=== PATIENT | male | born 1965 | race Caucasian/White ===

== ENCOUNTER 2017-08-23 01:26 | Emergency (ER) | payer MEDICAID, OTHER ==
[~2017-08-23] VITALS: Ht 167.6 cm; Wt 77.1 kg
[~2017-08-23 01:26] MED LIST: NKM; UNOBMED
[2017-08-23 01:30] VITALS: BP 140/78
--- NOTE | 2017-08-23 02:22 | Emergency Room Report ---
History of Present Illness General Chief Complaint: Alcohol Intoxication Source: Patient, EMS Present Illness HPI Is a 52-year-old male with a history of polydrug abuse. He presents with altered mental status. He was outside a drug store. The 2 heavy drinking. Told me that he also using drugs. No trauma. Denies any other complaint. Bystander called 911. Allergies: Coded Allergies: No Known Allergies (Unverified , 12/23/13) UNABLE TO ASSESS (Unverified , 08/23/17) Patient History Past Medical History: see triage record, old chart reviewed Past Surgical History: unable to obtain Pertinent Family History: unable to obtain Social History: Reports: alcohol use, drug use Immunizations: other Reviewed Nursing Documentation: PMH: Agreed, PSxH: Agreed Nursing Documentation-PMH Past Medical History Deferred: Pt Cognitively Impaired Review of Systems All Other Systems: limited - Secondary to intoxication Physical Exam Vital Signs Date Time Temp Pulse Resp B/P (MAP) Pulse Ox O2 Delivery O2 Flow Rate FiO2 08/23/17 01:23 97.5 98 17 140/78 96 Room Air vitals normal Sp02 EP Interpretation: reviewed, normal General Appearance: well appearing, no apparent distress, other - Very intoxicated Head: normocephalic, atraumatic Eyes: bilateral eye PERRL, bilateral eye EOMI ENT: hearing grossly normal, normal pharynx Neck: full range of motion, supple, no meningismus Respiratory: chest non-tender, lungs clear, normal breath sounds Cardiovascular #1: regular rate, rhythm, no murmur Gastrointestinal: normal bowel sounds, non tender, no mass, no organomegaly, no bruit, non-distended Musculoskeletal: back normal, normal range of motion Neurologic: grossly normal Skin: warm/dry Medical Decision Making Diagnostic Impression: Primary Impression: Drug abuse Additional Impression: Acute alcoholic intoxication Qualified Codes: F10.929 - Alcohol use, unspecified with intoxication, unspecified ER Course Patient presents with intoxication secondary to alcohol and drugs. No trauma to warrant CT scan or x-ray. We'll watch until clinical sobriety. Last Vital Signs Date Time Temp Pulse Resp B/P (MAP) Pulse Ox O2 Delivery O2 Flow Rate FiO2 08/23/17 01:30 97.5 17 140/78 96 Room Air 08/23/17 01:23 98 Status: improved Disposition: HOME, SELF-CARE Condition: Stable [facility] (PCP) Patient Instructions: Alcohol Intoxication, [id number] Additional Instructions: Stop using drugs and alcohol. Followup with rehabilitation. Followup with your Dr. in 7 days. Return if worse. MALINA DURÁN M.D. Aug 23, 2017 02:22
[2017-08-23 04:10] VITALS: BP 118/57
[2017-08-23 05:15] VITALS: BP 118/57
== END 2017-08-23 05:13 | disposition home or self-care (01) ==
LOC: EDBD 01:26 → EMR 01:57
DX: F19.10 Other psychoactive substance abuse, uncomplicated (principal); F10.129 Alcohol abuse with intoxication, unspecified; R41.82 Altered mental status, unspecified
CPT/HCPCS: 99283